=== PATIENT | female | born 1995 ===

== ENCOUNTER 2021-08-24 23:23 | Emergency (ER) | payer SELFPAY ==
[2021-08-24 23:31] VITALS: BP 119/72
== END 2021-08-25 07:00 | disposition left against medical advice (07) ==
LOC: ED 23:23
DX: R51.9 Headache, unspecified (principal); R20.0 Anesthesia of skin; M54.9 Dorsalgia, unspecified; Z53.21 Procedure and treatment not carried out due to patient leaving prior to being seen by health care provider